=== PATIENT | female | born 1960 | race Caucasian/White ===

== ENCOUNTER 2023-03-13 08:23 | Outpatient (CLI) | payer BC, SELFPAY | END 2023-03-13 08:24 | disposition home or self-care (01) | PROVIDERS: PCP Family Medicine; Visit Provider Family Medicine | DX: Z00.00 Encounter for general adult medical examination without abnormal findings (principal); E78.5 Hyperlipidemia, unspecified; N95.9 Unspecified menopausal and perimenopausal disorder; F17.200 Nicotine dependence, unspecified, uncomplicated; M85.80 Other specified disorders of bone density and structure, unspecified site; Z11.59 Encounter for screening for other viral diseases | CPT/HCPCS: 80053; 80061; 82306; 83001; 86803 ==

== ENCOUNTER 2023-03-21 10:20 | Outpatient (CLI) | payer BC, SELFPAY ==
[2023-03-21 11:31] VITALS: BP 110/68; PULSE 94; RESP 16
--- NOTE | 2023-03-21 11:50 | W.PM.STED ---
Stress Test Note Date Date of test: 03/21/23 Providers Primary care provider: Arabella Ackerman Stress test physician: Siva Laura Stress Test Note Stress test ordered: Exercise Stress Test Indication for test: Shortness of breath, cardiac risk factors Results discussion: This pleasant lady presents for the above test, after discussion the risks benefits and side effects she would like to proceed pretest EKG shows normal sinus rhythm with a ventricular rate of 81, no acute ST wave changes are noted. Blood pressure is 98/62. Cardiac stress test medical history form is reviewed. Standard Jonel protocol is employed over a time course 10 minutes 1 seconds, achieved a metabolic equivalent of 11.7 Mets her maximum heart rate was 174, which is 128% of the target, test is felt to be valid, conditioning was felt to be excellent. She had no subjective complaints, test is terminated because of fulfillment of protocol. Review of the tracing showed no evidence of EKG abnormalities suggestive of ischemia, there is no ventricular or atrial arrhythmias. Impression: Negative electrographic portion of stress test, addition felt to be excellent Follow up suggested: Follow-up with primary care as needed, clinical correlation with the above test, patient left this test location back to baseline.
== END 2023-03-21 11:33 | disposition home or self-care (01) ==
PROVIDERS: PCP Family Medicine; Visit Provider Family Medicine
DX: R06.09 Other forms of dyspnea (principal); R07.9 Chest pain, unspecified; F17.200 Nicotine dependence, unspecified, uncomplicated
CPT/HCPCS: 93016; 93017